=== PATIENT | male | born 1965 | race Caucasian/White ===

== ENCOUNTER 2018-09-24 00:14 | Emergency (ER) | payer OTHER ==
--- NOTE | 2018-09-24 00:21 | EDPHY ---
H & P Time Seen by Provider: 09/24/18 00:18 HPI/ROS: HPI CHIEF COMPLAINT: "cold Feet" HISTORY OF PRESENT ILLNESS: 53-year-old male, presents emergency room by EMS after he states that he sulci and along the pad that says do not go past this sign or go off the path, he states this in treat him so he went off the path came to a small refer, and crossed refer in his leather boots. This caused his feet to get very cold as it is 30 degrees out. Due to his feet being cold he decided call 911 to be evaluated. He is brought to the emergency room by EMS, he is not suicidal homicidal. He is not psychotic. He is not hypothermic. He does complain of cold feet. His boots have been removed. His feet are cool but no evidence of cold injury on exam. No evidence of frostbite of esquivel nip. Plan for this patient be to warm up his feet, provide warm socks. Past Medical History: Denies medical history Past Surgical History: Denies surgical history Social History: Smokes tobacco. Denies alcohol or drugs to me. Homeless. Family History: Noncontributory ROS REVIEW OF SYSTEMS: 10 Systems were reviewed and negative with the exception of the elements mentioned in the history of present illness. Exam Constitutional triage nursing summary reviewed, vital signs reviewed, awake/ alert. Eyes normal conjunctivae and sclera, EOMI, PERRLA. HENT normal inspection, atraumatic, moist mucus membranes, no epistaxis, neck supple/ no meningismus, no raccoon eyes. Respiratory clear to auscultation bilaterally, normal breath sounds, no respiratory distress, no wheezing. Cardiovascular rate normal, regular rhythm, no murmur, no edema, distal pulses normal. Gastrointestinal soft, non-tender, no rebound, no guarding, normal bowel sounds, no distension, no pulsatile mass. Genitourinary no CVA tenderness. Musculoskeletal bilateral lower feet. Good distal pulses, good cap refill, however cool to touch, no evidence of esquivel nip or frostbite. no midline vertebral tenderness, full range of motion, no calf swelling, no tenderness of extremities, no meningismus, good pulses, neurovascularly intact. Skin pink, warm, & dry, no rash, skin atraumatic. Neurologic awake, alert and oriented x 3, AAOx3, moves all 4 extremities equally, motor intact, sensory intact, CN II-XII intact, normal cerebellar, normal vision, normal speech. Psychiatric normal mood/affect. Heme/Lymph/Immune no lymphadenopathy. Differential Diagnosis: Includes but is not limited to in a particular order environmental exposure, hypothermia, limit exposure to cold, esquivel nip, frostbite Medical Decision Making: Plan for this patient provide warm socks, warm blankets, warm his feet. Once these or warmed up appropriately the patient feels better can be safely discharged from the ER. Source: Patient, EMS Departure - Departure Disposition: Home, Routine, Self-Care Clinical Impression: Cold exposure Condition: Good Instructions: Acute Hypothermia (ED) Additional Instructions: 1. Make sure you where warm socks. 2. Do not get your feet wet. Referrals: Patient,NotPresent [Primary Care Provider] - As per Instructions
[2018-09-24 00:42] VITALS: BP 128/89
== END 2018-09-24 01:31 | disposition home or self-care (01) ==
DX: R20.9 Unspecified disturbances of skin sensation (principal); X31.XXXA Exposure to excessive natural cold, initial encounter

== ENCOUNTER 2018-10-14 10:10 | Inpatient (IN) | payer OTHER ==
[2018-10-14] MEDS ORDERED: NS 1,000 ML IV ONE (10:39)
--- NOTE | 2018-10-14 10:52 | EDPHY ---
H & P Smoking Status: Current some day smoker Time Seen by Provider: 10/14/18 10:23 HPI/ROS: CLINICAL IMPRESSION: Right facial cellulitis and parotitis ASSESSMENT/PLAN: This is a 53-year-old homeless gentleman who presents to the emergency department 1 week after after nicking his ear while shaving hair and presents with significant right facial and parotid swelling. Patient reports subjective fever and chills although is afebrile on arrival. He is slightly tachycardic. He has a significant leukocytosis of 21 but otherwise no electrolyte imbalance, metabolic disturbance, or renal insufficiency. CT scan of the face with contrast shows no evidence of drainable abscess. Patient does have a history of MRSA and was given a dose of vancomycin in the ER. Seen and examined by Dr. Streeter. Given multiple comorbidities and diagnostic evaluation, patient will be admitted to the hospital. I discussed with Lynne Escobar power plant operations manager for admissions who accepts this patient. He was stabilized in the ED prior to admission. DIFFERENTIAL DX: Differential diagnosis includes but not limited to facial cellulitis, facial abscess, parotid abscess, MRSA infection, sepsis ED PROCEDURES: See lab and imaging results below ED COURSE: 11:40 a.m.:. Patient seen and examined by Dr. Streeter as well. Will likely admit. Vancomycin ordered. CT pending at this time. 12:23pm: Discussed CT findings with Dr Troncoso. No e/o underlying facial or parotid abscess. Significant facial and parotid swelling and edema. Will admit given symptoms, homelessness, leukocytosis. Hospitalist paged. 12:30 p.m.: Case discussed with Lynne Escobar, nurse practitioner for admissions. [facility] admit to [facility] under the care of Dr. Epps CHIEF COMPLAINT: Right facial swelling HPI: This is a 53-year-old homeless male who presents to the emergency department with 1 week of right facial swelling. Patient believes symptoms started after he was trimming ear hair and cut his right ear. Over the course of 1 week he has had progressively increasing right facial and cheek swelling, increased pain , and subjective fevers and chills. No nausea, vomiting, palpitations. Pain is not worsened by eating but he admits he has not had much to eat. He had a little bit of milk to drink today. He is tolerating secretions well. No reported shortness of breath. He has multiple wounds on the scalp and arms which he states have appeared since he injured his ear. He does have a history of MRSA last summer. His only medication is an inhaler. He does drink alcohol but denies illicit an IV drug abuse. No reported otorrhea, hearing loss, tinnitus, headaches, vertigo or dizziness PMH: Asthma Pertinent Past Surgical History: None reported Family History: Noncontributory Social History: Homeless, denies illicit and IV drug abuse, admits to alcohol use REVIEW OF SYSTEMS: All other systems negative Constitutional: Subjective fever and chills, positive appetite change.] Eyes: No discharge, vision change ENT: No sore throat, congestion, positive ear pain. Cardiovascular: No chest pain, no palpitations. Respiratory: No cough, no shortness of breath. Gastrointestinal: No abdominal pain, no vomiting, diarrhea. Skin: No rashes, color change. Neurological: No headache, dizziness, weakness. PHYSICAL EXAM: General Appearance: Alert, oriented, appropriate, cooperative, homeless, disheveled, slightly tachycardic, afebrile HEENT: TMs are clear bilaterally no perforation or FB, abrasion noted to the right external ear just inferior to the tragus. no injection, no evidence of serous or mucopurulent otitis. Swelling inferior to this spreading medially along the entire parotid region and right cheek. This area is very tender to palpation. No submandibular swelling. Bilateral symmetric subcentimeter anterior lymphadenopathy noted. No intraoral lesions or dental pain. No Nazario 's angina. Oropharynx clear is no erythema or exudates, no tonsillar hypertrophy or asymmetry. Dentition without abnormality. Eyes: PERRLA, no acute vision change, nystagmus, swelling, discharge, pain or photosensitivity. Conjunctiva pink, no pallor or injection Neck: no midline pain, FROM, no meningismus. Respiratory: There are no retractions, lungs are clear to auscultation. Cardiac: Tachycardic, regular rhythm, no murmurs or gallops. Gastrointestinal: Abdomen is soft, nontender, bowel sounds normal, no masses/ hernia, no rigidity, guarding or focal peritoneal findings. Neurological: Alert and oriented x 3, CN 2-12 grossly intact, normal gait no ataxia, DTR's intact, normal sensation and strength Skin: Multiple scabbed sores on the scalp and bilateral arms. No open wounds that are bleeding or draining purulent discharge Musculoskeletal: Extremities are symmetrical, full range of motion, no tenderness, deformity, swelling, or erythema. Psychiatric: Patient is oriented X 3, there is no agitation. MEDICAL DECISION MAKING: Secondary supervising physician who also saw and examined the patient at time of evaluation was Dr Streeter. Diagnosis: Right facial cellulitis and parotitis. New, requires workup Summary: See Assessment and Plan for summary of ED visit Clinical lab tests: ordered / reviewed. Independent visualization of images, tracing, or specimens: yes Discussed patient with another provider: Dr. Streeter, [facility] nurse practitioner Patient Progress: Stabilized . (Franklyn Esparza) Constitutional: Initial Vital Signs Temperature (C) 37.1 C 10/14/18 10:19 Heart Rate 104 H 10/14/18 10:19 Respiratory Rate 18 10/14/18 10:19 Blood Pressure 98/60 L 10/14/18 10:19 O2 Sat (%) 96 10/14/18 10:19 O2 Delivery Mode Room Air Allergies/Adverse Reactions: No Known Allergies Allergy (Verified 10/14/18 11:57) Home Medications: Medication Instructions Recorded Albuterol [Proventil Inhaler HFA 1 - 2 puffs IH Q4H PRN 10/14/18 (*)] MDM/Departure - MDM Medications Given: Vancomycin HCl 1.5 gm/ Sodium (Chloride) 250 mls @ 166.667 mls/hr IV EDNOW ONE Stop: 10/14/18 13:59 Last Admin: 10/14/18 12:33 Dose: 250 mls Discontinued Medications Sodium Chloride (Ns) 1,000 mls @ 0 mls/hr IV EDNOW ONE; Wide Open PRN Reason: Protocol Stop: 10/14/18 10:40 Last Admin: 10/14/18 11:30 Dose: 1,000 mls ED Course/Re-evaluation: PHYSICIAN DOCUMENTATION: The patient was evaluated and managed by the Physician Daytime Babysitter and myself. I have reviewed the chart and agree with the findings and plan of care as documented. In addition, I examined the patient myself at 1140. History confirmed as started is a scratch on the outside of his ear, now with swelling on the right side of his face and moderate to severe pain. Physical findings as follows: Patient has abrasion on the outside of his ear, tenderness warmth and swelling of the right side of his face including his jaw. No trismus. WBC greater than 20, homeless, facial cellulitis. Would recommend admission for IV antibiotics until improvement. No abscess seen on CT. No airway compromise. Does not have vesicles to suggest zoster is likely. I am the secondary supervising physician. (Vincent Streeter) - Depart Disposition: [facility] Inpatient Acute Clinical Impression: Facial cellulitis, Parotitis, acute Condition: Fair
[2018-10-14 11:01] LABS: PLATELET COUNT 399 10^3/uL (150-400)
[2018-10-14] MEDS ORDERED: IOPAMIDOL (ISOVUE-300) 100 ML BTL ONE (11:38)
[2018-10-14] MEDS ORDERED: VANCOMYCIN 1.5 GM in D5W 250 ML IV ONE (11:56)
[2018-10-14] MEDS ORDERED: VANCOMYCIN 1.5 GM in NS 250 ML IV ONE (12:30)
[2018-10-14] MEDS ORDERED: ONDANSETRON DISINTEGRATING 4 MG TAB PO PRN (12:31)
[2018-10-14] MEDS ORDERED: ONDANSETRON 4 MG/2 ML VIAL IVP PRN (12:31)
[2018-10-14] MEDS ORDERED: ALBUTEROL 60 PUFFS/8 GM MDI IH PRN (13:29)
--- NOTE | 2018-10-14 13:46 | PDGENHP ---
History and Physical - Chief Complaint Right facial cellulitis and parotitis - History of Present Illness 53 y/o male with history of MRSA presents with progressive right-sided facial swelling and pain for one week. He reports attempting to use a razor and shave his ear hair and believes this is what prompted the infection. He endorses pain swallowing, difficulty opening his mouth, ear pain, tinnitus, headache. Subjective with fevers and chills. Denies SOB, chest pains, dysuria, N/V, vision changes, otorrhea. CT Maxillofacial w/IV contrast Scan: No drainable abscess or focal fluid collection Per pt, hx of MRSA was to his wounds BLE and was last summer. Past Medical/Surgical History 1. Asthma 2. Suicide attempt 2017 3. Hx of MRSA Social 1. Homeless 2. Rarely drinks alcohol. Last time he drank was at the beginning of September 2018; smokes cigarettes (4-5 cigarettes/day) and cannabis; 6 months ago, used to smoke cocaine and meth but stopped "because that's the bad stuff." Denies IV drug use. History Information - Allergies/Home Medication List Allergies/Adverse Reactions: No Known Allergies Allergy (Verified 10/14/18 11:57) Home Medications: Albuterol [Proventil Inhaler HFA (*)] 1 - 2 puffs IH Q4H PRN 10/14/18 [Last Taken Unknown] I have personally reviewed and updated: family history, medical history, social history, surgical history Past Medical History: See HPI List - Surgical History Additional surgical history: See HPI list - Social History Smoking Status: Current every day smoker Tobacco Use: Cigarettes Alcohol Use: Rarely Drug Use: Marijuana Review of Systems Review of Systems: ROS: 10pt was reviewed & negative except for what was stated in HPI & below Constitutional: Reports: chills, fever, malaise, other (Pain) EENMT: Reports: ear pain, mouth pain, mouth swelling, other (Pain swallowing) Cardiac: Reports: no symptoms Respiratory: Reports: no symptoms Gastrointestinal: Reports: no symptoms Genitourinary: Reports: no symptoms Muscolosketal: Reports: no symptoms Skin: Reports: lumps Neurological: Reports: headache Hematologic/Lymphatic: Reports: swollen glands Immunologic/Allergy: Reports: no symptoms Physical Exam Physical Exam: Lab data and imaging reviewed Temp Pulse Resp BP Pulse Ox 37.1 C 95 16 114/64 94 10/14/18 12:35 10/14/18 12:35 10/14/18 12:35 10/14/18 12:35 10/14/18 12:35 Constitutional: uncomfortable, unkempt Eyes: PERRL, anicteric sclera, EOMI Ears, Nose, Mouth, Throat: moist mucous membranes, other (Unable to visualize right TM. Canal edematous with clear drainage. Lesion inferior to tragus. Exterior edematous following right side of jaw line.) Cardiovascular: regular rate and rhythym, no murmur, rub, or gallop, No edema Peripheral Pulses: 2+: dorsalis-pedis (R) (Radial 2+), dorsalis-pedis (L) ( Radial 2+) Respiratory: no respiratory distress, no rales or rhonchi, clear to auscultation Gastrointestinal: normoactive bowel sounds, soft, non-tender abdomen, no palpable masses Genitourinary: no bladder fullness, no bladder tenderness Skin: warm, erythema, induration Musculoskeletal: full muscle strength, no muscle tenderness, normal joint ROM, no joint effusions Neurologic: AAOx3, sensation intact bilaterally, CN II-XII Intact Psychiatric: interacting appropriately, not anxious, not encephalopathic, thought process linear Lymph, Heme, Immunologic: lymphadenopathy Lab Data & Imaging Review 10/14/18 10:50 10/14/18 10:50 WBC 21.07 10^3/uL (3.80-9.50) H 10/14/18 10:50 RBC 5.13 10^6/uL (4.40-6.38) 10/14/18 10:50 Hgb 16.5 g/dL (13.7-17.5) 10/14/18 10:50 Hct 46.2 % (40.0-51.0) 10/14/18 10:50 MCV 90.1 fL (81.5-99.8) 10/14/18 10:50 MCH 32.2 pg (27.9-34.1) 10/14/18 10:50 MCHC 35.7 g/dL (32.4-36.7) 10/14/18 10:50 RDW 14.0 % (11.5-15.2) 10/14/18 10:50 Plt Count 399 10^3/uL (150-400) 10/14/18 10:50 MPV 8.6 fL (8.7-11.7) L 10/14/18 10:50 Neut % (Auto) 85.7 % (39.3-74.2) H 10/14/18 10:50 Lymph % (Auto) 5.3 % (15.0-45.0) L 10/14/18 10:50 [place] % (Auto) 8.2 % (4.5-13.0) 10/14/18 10:50 Eos % (Auto) 0.0 % (0.6-7.6) L 10/14/18 10:50 Baso % (Auto) 0.3 % (0.3-1.7) 10/14/18 10:50 Nucleat RBC Rel Count 0.0 % (0.0-0.2) 10/14/18 10:50 Absolute Neuts (auto) 18.06 10^3/uL (1.70-6.50) H 10/14/18 10:50 Absolute Lymphs (auto) 1.12 10^3/uL (1.00-3.00) 10/14/18 10:50 Absolute Monos (auto) 1.73 10^3/uL (0.30-0.80) H 10/14/18 10:50 Absolute Eos (auto) 0.00 10^3/uL (0.03-0.40) L 10/14/18 10:50 Absolute Basos (auto) 0.06 10^3/uL (0.02-0.10) 10/14/18 10:50 Absolute Nucleated RBC 0.00 10^3/uL (0-0.01) 10/14/18 10:50 Immature Gran % 0.5 % (0.0-1.1) 10/14/18 10:50 Immature Gran # 0.11 10^3/uL (0.00-0.10) H 10/14/18 10:50 RBC/WBC/PLT Morphology TNP 10/14/18 10:50 Platelet Estimate TNP 10/14/18 10:50 VBG Lactic Acid 1.0 mmol/L (0.7-2.1) 10/14/18 10:50 Sodium 134 mEq/L (135-145) L 10/14/18 10:50 Potassium 4.1 mEq/L (3.3-5.0) 10/14/18 10:50 Chloride 104 mEq/L (97-110) 10/14/18 10:50 Carbon Dioxide 22 mEq/l (22-31) 10/14/18 10:50 Anion Gap 8 mEq/L (6-14) 10/14/18 10:50 BUN 12 mg/dL (7-23) 10/14/18 10:50 Creatinine 0.6 mg/dL (0.7-1.3) L 10/14/18 10:50 Estimated GFR > 60 10/14/18 10:50 Glucose 104 mg/dL (70-100) H 10/14/18 10:50 Calcium 9.4 mg/dL (8.5-10.4) 10/14/18 10:50 Assessment & Plan Plan: 53 y/o male with acute right sided facial cellulitis and parotitis, meeting sepsis criteria with elevated heart rate (95) and leukocytosis (21.07). We will treat the pt with antibiotics, IVF and manage his pain with PO/IVP medications. Blood culture and wound culture pending. Monitor vitals. Repeat CBC tomorrow morning. Diet: Full Liquid, ADAT VTE ppx: SCDS, Lovenox Subq Code: Full Dispo: Admit to obs
[2018-10-14] MEDS: NS 1,000 ML IV SCH ×2 (14:27→23:45)
[2018-10-14] MEDS: ACETAMINOPHEN 325 MG TAB PO PRN ×2 (17:02→21:17)
[2018-10-14] MEDS: AMPICILLIN/SULBACTAM 3 GM in NS 100 ML IV SCH ×2 (17:39→23:48)
--- NOTE | 2018-10-14 18:43 | HOSPPROG ---
Hospitalist Progress Note Assessment/Plan: Patient seen and examined. Discussed with Yvette Biswas WELDING LEAD BURNER and agree with plan A/P: * Acute cellulitis with parotitis -doubt MRSA -change abx to IV Unasyn -lemon drops * Sepsis due to cellulitis - evidenced by leukocytosis and tachycardia -lactate okay -BC sent * h/p MRSA - LE wounds -isolation * Tobacco dependence -patch if needed Objective: Vital Signs Temp Pulse Resp BP Pulse Ox 37.5 C 82 18 115/68 94 10/14/18 16:00 10/14/18 16:20 10/14/18 16:20 10/14/18 16:00 10/14/18 16:20 Microbiology 10/14/18 16:20 Gram Stain - Final Mouth - Anaerobic Tube/Swab 10/13/18 10/14/18 10/15/18 05:59 05:59 05:59 Intake Total 1600 Output Total 500 Balance 1100 d/w tori contreras ER provider regarding ER course CT face- parotid gland infected - Physical Exam Constitutional: no apparent distress, appears nourished, not in pain Ears, Nose, Mouth, Throat: other (enlarged, hard parotic gland with surrounding skin erythema) Cardiovascular: regular rate and rhythym, no murmur, rub, or gallop Respiratory: no respiratory distress, no rales or rhonchi, clear to auscultation Gastrointestinal: normoactive bowel sounds, soft, non-tender abdomen, no palpable masses Genitourinary: no bladder fullness, no bladder tenderness, no renal bruits Neurologic: AAOx3, sensation intact bilaterally Psychiatric: interacting appropriately, not anxious, not encephalopathic, thought process linear ICD10 Worksheet Patient Problems: Problems Problem Status Onset Facial cellulitis Acute Parotitis, acute Acute
[2018-10-14] MEDS: ENOXAPARIN 40 MG/0.4 ML SYR SC SCH (21:16)
[2018-10-15] MEDS: ACETAMINOPHEN 325 MG TAB PO PRN ×2 (02:56→19:42)
[2018-10-15] MEDS: oxyCODONE IR 5 MG TAB PO PRN ×4 (04:58→20:37)
[2018-10-15 05:29] LABS: PLATELET COUNT 381 10^3/uL (150-400)
[2018-10-15] MEDS: AMPICILLIN/SULBACTAM 3 GM in NS 100 ML IV SCH ×4 (05:35→23:57)
[2018-10-15] MEDS: ENOXAPARIN 40 MG/0.4 ML SYR SC SCH (08:52)
[2018-10-15] MEDS: NS 1,000 ML IV SCH (08:52)
--- NOTE | 2018-10-15 15:10 | HOSPPROG ---
Hospitalist Progress Note Assessment/Plan: * Acute right facial cellulitis with parotitis -on IV Unasyn -no improvement yet - will give another 24 hours on Unasyn and reassess * Sepsis due to cellulitis - evidenced by leukocytosis and tachycardia -lactate okay -BC sent * h/p MRSA - LE wounds -isolation * Tobacco dependence -patch if needed Subjective: No better, gland not softer, pain not better Objective: Vital Signs Temp Pulse Resp BP Pulse Ox 36.7 C 75 94 H 116/75 92 10/15/18 11:26 10/15/18 11:26 10/15/18 11:26 10/15/18 11:26 10/15/18 08:00 Microbiology 10/14/18 16:20 Gram Stain - Final Mouth - Anaerobic Tube/Swab Laboratory Results 10/15/18 04:47 10/14/18 10/15/18 10/16/18 05:59 05:59 05:59 Intake Total 3250 Output Total 1450 425 Balance 1800 -425 - Physical Exam Constitutional: no apparent distress, appears nourished, not in pain Ears, Nose, Mouth, Throat: other (right parotid very firm, tender) Cardiovascular: regular rate and rhythym, no murmur, rub, or gallop Respiratory: no respiratory distress, no rales or rhonchi, clear to auscultation Gastrointestinal: normoactive bowel sounds, soft, non-tender abdomen, no palpable masses Skin: warm, erythema, induration, other (right facial cellulitis to ear and down neck with very firm parotid gland to palpation), No mottled Neurologic: AAOx3, sensation intact bilaterally Psychiatric: interacting appropriately, not anxious, not encephalopathic, thought process linear ICD10 Worksheet Patient Problems: Problems Problem Status Onset Facial cellulitis Acute Parotitis, acute Acute
--- NOTE | 2018-10-15 15:14 | PDMN ---
Medical Necessity Medical necessity: Pt changed to IP as of 10/15/2018 per and MCG M-160 ( Sepsis); los > 2 mn for ongoing tx and management of sepsis due to cellulitis evidenced by leukocytosis and tachycardia; requiring IV ABX, IVF, and serial labs.
--- NOTE | 2018-10-15 17:22 | ASMTCMCOM ---
CM Note CM Note Notes: Spoke w/RN, pt admitted for facial cellulitis. Pt is homeless, suffers from PTSD, now on IV abx. DC needs unclear, CM w/f. DC Plan: TBD Date Signed: 10/15/2018 05:21 PM Electronically Signed By:Liberty Morris RN
[2018-10-16] MEDS: oxyCODONE IR 5 MG TAB PO PRN ×6 (01:51→22:26)
[2018-10-16] MEDS: ACETAMINOPHEN 325 MG TAB PO PRN ×2 (04:51→13:41)
[2018-10-16 05:13] LABS: PLATELET COUNT 356 10^3/uL (150-400)
[2018-10-16] MEDS: AMPICILLIN/SULBACTAM 3 GM in NS 100 ML IV SCH ×3 (05:19→17:13)
[2018-10-16] MEDS: ENOXAPARIN 40 MG/0.4 ML SYR SC SCH (07:41)
--- NOTE | 2018-10-16 14:50 | HOSPPROG ---
Hospitalist Progress Note Assessment/Plan: 53y male with c/o r facial pain and swelling. First encounter, chart reviewed. * Acute right facial cellulitis with parotitis -on IV Unasyn -slight improvement behind ear - will give another 24 hours on Unasyn and reassess -consider reimaging if no continued improvement * Sepsis due to cellulitis - evidenced by leukocytosis and tachycardia -lactate okay -BC NGTD * h/p MRSA - LE wounds -isolation * Tobacco dependence -patch if needed *Dispo -unclear -cont iV abx -follow Subjective: Up in the chair. Feels a bit better today. Still with pain. Less swelling. Objective: Vital Signs Temp Pulse Resp BP Pulse Ox 36.4 C 76 18 119/87 H 91 L 10/16/18 08:00 10/16/18 08:00 10/16/18 08:00 10/16/18 08:00 10/16/18 08:00 Laboratory Results 10/16/18 04:58 10/15/18 10/16/18 10/17/18 05:59 05:59 05:59 Output Total 1250 Balance -1250 - Physical Exam Constitutional: appears nourished, uncomfortable, No obese Eyes: PERRL, anicteric sclera, EOMI Ears, Nose, Mouth, Throat: moist mucous membranes, hearing normal, other (right ear wound, right facial lump) Cardiovascular: regular rate and rhythym, No JVD, No edema Respiratory: no respiratory distress, no rales or rhonchi, reduced air movement Gastrointestinal: normoactive bowel sounds, No tenderness, No ascites Skin: warm, abrasion, erythema, No mottled Musculoskeletal: normal joint ROM, no joint effusions, generalized weakness Neurologic: AAOx3 Psychiatric: interacting appropriately, not anxious, not encephalopathic, thought process linear ICD10 Worksheet Patient Problems: Problems Problem Status Onset Facial cellulitis Acute Parotitis, acute Acute
--- NOTE | 2018-10-16 15:08 | WOCRNPDOC ---
WOCRN Advanced Assessment Note - Skin Integrity Problem, Advanced Assess Right Arm Deroofed Blisters Dressing Type: Open to Air Exudate Amount: Minimal Exudate Characteristic(s): Dried, Serosanguinous Integumentary Issue Intervention: Dressing Applied (allevyn life), Silver Gel Applied Roxie Wound Tissue: Erythema, Hot, Swollen, Painful/Tender Roxie Wound Swelling: Moderate Wound Bed Color: [place], Red Wound Bed Constitution: Red/[place] - Non Granular Tissue, De-roofed Serous Blister Site Measurement - Head-to-Toe Length X Width X Depth (cm): 2 wounds approximately 1x1x0.1 closest to elbow. 3 wounds approximately 0.6x0.6x0.1 closest to wrist Skin Integrity Problem Comment: Patient reports blisters that deroofed, with history of appearing in similar manner in the past. Patient states that they are painful. Wound beds have erythema around edges, and are swollen. REBEKAH Farr in room for care. Wound care will not follow this wound. Right Fourth Finger Laceration Dressing Type: Open to Air Exudate Amount: Scant Roxie Wound Tissue: Swollen Roxie Wound Swelling: Severe Wound Bed Color: [place], Red Wound Bed Constitution: Red/[place] - Non Granular Tissue Wound Edges: Epithelizing Site Measurement - Head-to-Toe Length X Width X Depth (cm): 0.4x1.1x0.3 Skin Integrity Problem Comment: Patient states wound is accidental from a knife , and occurred approximately 2 weeks ago. Periwound skin is quite swollen, but there is no erythema or warmth. Wound care will not follow this wound. Right Ear Abrasion Dressing Type: Open to Air Exudate Amount: Minimal Exudate Color: Reddish/Yellow Exudate Characteristic(s): Serosanguinous Roxie Wound Tissue: Erythema, Swollen, Painful/Tender Roxie Wound Swelling: Mild Wound Bed Color: Red Wound Bed Constitution: Red/[place] - Non Granular Tissue Site Measurement - Head-to-Toe Length X Width X Depth (cm): pinpoint partial thickness openings, largest 0.2x0.2x0.1 within area of erythema approximately 1x1 Skin Integrity Problem Comment: Patient reports trimming ear hair when he accidentally cut himself. Due to location of wound, recommend to Lynne O'Bermudez use of bacitracin ointment and leaving uncovered. Wound care will not follow. Please reconsult PRN.
[2018-10-16] MEDS: BACITRACIN ZINC 14.2 GM OINTTUBE TP SCH ×4 (17:13→22:22)
[2018-10-17] MEDS: AMPICILLIN/SULBACTAM 3 GM in NS 100 ML IV SCH ×2 (00:29→06:01)
[2018-10-17] MEDS: ACETAMINOPHEN 325 MG TAB PO PRN ×3 (01:20→10:48)
[2018-10-17] MEDS: oxyCODONE IR 5 MG TAB PO PRN ×4 (03:32→12:58)
--- NOTE | 2018-10-17 09:37 | HOSPPROG ---
Hospitalist Progress Note Assessment/Plan: 53y male with c/o r facial pain and swelling. Hx of a splenectomy. First encounter, chart reviewed. Will ask ID and ENT to evaluate * Acute right facial cellulitis with associated parotitis -on IV Unasyn, abx changed to Daptomycin to have coverage of MRSA -will ask ID to get involved -concerned he is having more pain, appreciate Dr Salas and Dr Sher -will get another neck CT w contrast for further evaluation * Sepsis due to cellulitis -evidenced by leukocytosis and tachycardia -lactate okay -BC NGTD *emesis -had a bout yesterday and again today -will give a liter of fluids. * h/p MRSA - LE wounds -isolation * Tobacco dependence -patch if needed *plan: Dr Sher and Dr Salas to see. appreciate their involvement. Subjective: Ernesto said his pain is worsening kady around his right ear area. Objective: Vital Signs Temp Pulse Resp BP Pulse Ox 37.1 C 88 16 120/82 H 91 L 10/17/18 08:00 10/17/18 08:00 10/17/18 08:00 10/17/18 08:00 10/17/18 08:00 Laboratory Results 10/16/18 04:58 10/16/18 10/17/18 10/18/18 05:59 05:59 05:59 Output Total 1250 Balance -1250 - Physical Exam Constitutional: uncomfortable, No not in pain Eyes: PERRL Ears, Nose, Mouth, Throat: hearing normal Cardiovascular: regular rate and rhythym Respiratory: no respiratory distress Skin: warm, other (swelling along the right jaw up towards his right ear, has a cut on the top part of his ear without any purulent drainage) Musculoskeletal: full muscle strength Neurologic: AAOx3 Psychiatric: interacting appropriately, not encephalopathic ICD10 Worksheet Patient Problems: Problems Problem Status Onset Facial cellulitis Acute Parotitis, acute Acute
[2018-10-17] MEDS: ENOXAPARIN 40 MG/0.4 ML SYR SC SCH (09:41)
[2018-10-17] MEDS: BACITRACIN ZINC 14.2 GM OINTTUBE TP SCH ×3 (09:42→21:24)
--- NOTE | 2018-10-17 10:23 | PDCONSULT ---
Cad Cam Programmer Note: ENT CONSULT brief note. See dictation for complete report. Right parotitis, facial cellulitis. Appears to be worsening. Possible abscess. RECOMMEND: - Agree with adding Vanco (per ID) - New CT neck with contrast to include parotid
[2018-10-17] MEDS ORDERED: VANCOMYCIN 1.25 GM in NS 250 ML IV SCH (10:30)
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
[2018-10-17] MEDS: DAPTOMYCIN IV SCH (11:56)
[2018-10-17] MEDS: NS IV SCH (11:56)
[2018-10-17 11:58] LABS: CREATINE KINASE 118 IU/L (0-224)
[2018-10-17 14:51] LABS: HEPATITIS B CORE AB TOTAL NEGATIVE (NEGATIVE); HEPATITIS B SURFACE ANTIGEN NEGATIVE (NEGATIVE); HEPATITIS C ANTIBODY TOTAL NEGATIVE (NEGATIVE); HIV TYPE 1 AND 2 NEGATIVE (NEGATIVE)
[2018-10-17] MEDS ORDERED: NS 1,000 ML IV SCH (16:00)
[2018-10-17] MEDS ORDERED: IOPAMIDOL (ISOVUE-300) 100 ML BTL ONE (16:22)
--- NOTE | 2018-10-17 18:29 | GHP ---
DATE OF ADMISSION: 10/15/2018 REFERRING PHYSICIAN: Meg Wagoner NP REASON FOR CONSULTATION: To assist in the management of facial cellulitis/parotitis. HISTORY OF PRESENT ILLNESS: The patient was brought to the [facility] Emergency Depa rtment on 10/14/2018, and admitted to the floor with an elevated white blood cell count and a CT conc erning for right facial cellulitis over the right parotid gland. The patient was placed on Unasyn an d seems to have not had significant improvement. He states that approximately a week ago, he was sha ving with a regular razor and nicked himself on the ear, as he was trying to shave hair around his tr chacorta. He continues to have right-sided facial swelling but denies nausea, vomiting. PAST MEDICAL HISTORY: Pertinent for COPD, tobacco, history of alcoholism, marijuana use, bipolar dis order, PTSD, splenectomy, MRSA skin infections. MEDICATIONS: Reviewed. ALLERGIES: No known drug allergies. SOCIAL HISTORY: Noncontributory. FAMILY HISTORY: Noncontributory. PHYSICAL EXAM: VITAL SIGNS: Blood pressure 120/82, heart rate 88, respiratory rate 16, O2 saturatio n 91% on room air, temperature is 37.1 degrees Celsius. GENERAL: Alert, interactive, no acute distr ess. HEAD AND FACE: Normocephalic, atraumatic with right facial swelling. There is a firm 8 cm x 4 cm region of induration over the right parotid gland. This is firm and nonfluctuant. Mild erythema . Ears: Right tragus with an abrasion. Ear canals are clear bilaterally. Eyes: EOMI. Nose: Ant erior rhinoscopy unremarkable. Oral cavity clear. No purulent material from Stensen's duct. NECK: Supple. Trachea midline. Jugular digastric mild lymphadenopathy. SKIN: Warm with no other obviou s head and neck lesions but for that noted over the right parotid gland. NEUROLOGIC: Cranial nerves 2-12 are grossly intact. LAB DATA: Blood cultures pending. Mouth swab unremarkable. White blood cell count 17.7. IMAGING: CT scan from ER visit reviewed. Agree with radiology assessment of the images that there i s only some cellulitis that appears to affect the lateral surface of the right parotid gland. No obv ious collection or abscess. ASSESSMENT: A 53-year-old male with right-sided cellulitis that has increased and is somewhat concer naila for abscess. PLAN: Defer to Infectious Disease for antibiotic change from Unasyn. He would be a good candidate f or repeat CT given that his history is consistent with enlarging tissue on that side. We will follow up CT. Please call if there are any questions or concerns. My cell phone number is [phone]. /[id number]/MODL
[2018-10-17] MEDS: IBUPROFEN 200 MG TAB PO PRN (21:23)
[2018-10-18 05:37] LABS: PLATELET COUNT 431 10^3/uL (150-400)
[2018-10-18] MEDS: ACETAMINOPHEN 325 MG TAB PO PRN ×3 (08:36→19:11)
[2018-10-18] MEDS: ENOXAPARIN 40 MG/0.4 ML SYR SC SCH (09:18)
[2018-10-18] MEDS: BACITRACIN ZINC 14.2 GM OINTTUBE TP SCH ×3 (09:49→20:39)
--- NOTE | 2018-10-18 10:16 | SOAPPROG ---
SOAP Progress Note Assessment/Plan: Assessment: Cellulitis with spreading to parotitis and intraparotid fluid collection, possible early abscess/consolidation. Induration and R cheek mass slightly improved since yesterday. WBC normalized. Plan: Hold on surgical intervention for now. Reassess in 24 hours. Call if worsens. Continue ABX per infectious disease. 10/18/18 10:13 10/18/18 10:17 Subjective: Patient feels like sx improving. Objective: Vital Signs Temp Pulse Resp BP Pulse Ox 36.8 C 58 L 16 131/92 H 95 10/18/18 07:59 10/18/18 07:59 10/18/18 07:59 10/18/18 07:59 10/18/18 07:59 Microbiology 10/17/18 10:30 Gram Stain - Final Ear - Swab Laboratory Results 10/18/18 05:00 10/18/18 05:00 10/17/18 10/18/18 10/19/18 05:59 05:59 05:59 Intake Total 1000 Balance 1000 Physical Exam - Physical Exam General Appearance: alert, no apparent distress EENT: PERRL/EOMI, pharynx normal, TMs normal, other (Right cheek induration over and at the parotid gland. Mild erythema.), No EOM palsy, No purulent nasal drainage, No tonsillar exudate Neck: full range of motion, supple, lymphadenopathy (R) Skin: normal color, warm/dry Neuro/Psych: no motor/sensory deficits, alert, normal mood/affect, oriented x 3 ICD10 Worksheet Patient Problems: Problems Problem Status Onset Facial cellulitis Acute Parotitis, acute Acute
[2018-10-18] MEDS: NS IV SCH (13:02)
[2018-10-18] MEDS: DAPTOMYCIN IV SCH (13:02)
--- NOTE | 2018-10-18 13:03 | ASMTCMCOM ---
CM Note CM Note Notes: Pt here for facial cellulitis after trying to clip ear hair. Pt states has 2 places he stays, gave address in [place] on his ID. [address], [place] [address]. Also stays in [place], he does not thing he will need anything at dc, pt ambulates independently but is on IV abx right now, hopefully can transition to orals. DC Plan: Independent Date Signed: 10/18/2018 01:02 PM Electronically Signed By:Liberty Morris RN
--- NOTE | 2018-10-18 15:15 | HOSPPROG ---
Hospitalist Progress Note Assessment/Plan: 53y male with c/o r facial pain and swelling. Hx of a splenectomy. * Acute right facial cellulitis with associated parotitis -abx changed to Daptomycin -reviewed 2nd CT scan which shows fluid collection concerning for abscess formation -he is feeling better today and has less pain-no intervention at this time -Sialogogues added along w warm compresses -ear swab show staph aureus *episodes of diarrhea -if continues will check for c difficile * Sepsis due to cellulitis -resolved -wbc much improved, no longer tachycardic *emesis -none further * h/p MRSA - LE wounds -isolation * Tobacco dependence -patch if needed *plan: continue current care. Reviewed his care w Dr Shepard. Appreciate Dr Salas. Subjective: Ernesto said he is feeling better today. Objective: Vital Signs Temp Pulse Resp BP Pulse Ox 36.8 C 58 L 16 131/92 H 95 10/18/18 07:59 10/18/18 07:59 10/18/18 07:59 10/18/18 07:59 10/18/18 07:59 Microbiology 10/17/18 10:30 Gram Stain - Final Ear - Swab Laboratory Results 10/18/18 05:00 10/18/18 05:00 10/17/18 10/18/18 10/19/18 05:59 05:59 05:59 Intake Total 1000 Balance 1000 - Physical Exam Constitutional: no apparent distress, appears nourished, uncomfortable Eyes: PERRL Ears, Nose, Mouth, Throat: hearing normal Cardiovascular: regular rate and rhythym Respiratory: no respiratory distress Skin: other (right jaw and facial area w less swelling today.) Musculoskeletal: full muscle strength Neurologic: AAOx3 Psychiatric: interacting appropriately ICD10 Worksheet Patient Problems: Problems Problem Status Onset Facial cellulitis Acute Parotitis, acute Acute
--- NOTE | 2018-10-18 16:54 | PCMIDPN ---
Assessment/Plan: Assessment: Right ear cellulitis with wound infection and sympathetic right parotitis. He has seen Silvano improvement since change to IV daptomycin yesterday. Wound culture is growing Staph aureus. It is getting subbed out today in the micro lab and will be hopefully identified tomorrow as MRSA versus MSSA. Plan: 1. Continue IV daptomycin. 2. Possibly plan on discharge on oral doxycycline empirically in the next 1-2 days. 10/18/18 16:52 10/18/18 16:53 Subjective: Patient is resting in his hospital room. He is very pleased with the progress that he is seen over the last 24 hr. Significantly decreased erythema in his right ear. Right parotid is still enlarged. Objective: Daptomycin # 2 Vital Signs Temp Pulse Resp BP Pulse Ox 36.8 C 75 16 119/76 93 10/18/18 15:49 10/18/18 15:49 10/18/18 15:49 10/18/18 15:49 10/18/18 15:49 Microbiology 10/17/18 10:30 Gram Stain - Final Ear - Swab Laboratory Results 10/18/18 05:00 10/18/18 05:00 10/17/18 10/18/18 10/19/18 05:59 05:59 05:59 Intake Total 1000 Balance 1000 - Physical Exam General Appearance: WD/WN, alert, no apparent distress, non-toxic EENT: pharynx normal, other (Right ear normal appearing with very mild erythema. ), No normal ENT inspection (Right parotid gland enlargement) Respiratory: lungs clear, normal breath sounds, No respiratory distress Cardiac/Chest: regular rate, rhythm, No tachycardia ICD10 Worksheet Patient Problems: Problems Problem Status Onset Facial cellulitis Acute Parotitis, acute Acute
[2018-10-19] MEDS: ACETAMINOPHEN 325 MG TAB PO PRN ×3 (07:48→21:10)
[2018-10-19] MEDS: ENOXAPARIN 40 MG/0.4 ML SYR SC SCH (07:48)
[2018-10-19] MEDS: BACITRACIN ZINC 14.2 GM OINTTUBE TP SCH ×3 (07:49→21:03)
[2018-10-19] MEDS: NS IV SCH (10:58)
[2018-10-19] MEDS: DAPTOMYCIN IV SCH (10:58)
--- NOTE | 2018-10-19 14:47 | HOSPPROG ---
Hospitalist Progress Note Assessment/Plan: 53y male with c/o r facial pain and swelling. Hx of a splenectomy. * Acute right facial cellulitis with associated parotitis -abx changed to Daptomycin -reviewed 2nd CT scan which shows fluid collection concerning for abscess formation -he is much improved -Sialogogues added along w warm compresses -ear swab show staph aureus *episodes of diarrhea -no further c/o of this * Sepsis due to cellulitis -resolved -wbc much improved, no longer tachycardic *emesis -none further * h/p MRSA - LE wounds -isolation * Tobacco dependence -patch if needed *plan: continue current care. possibly home in the next day or so. Subjective: Zackery is feeling much better today, swelling is decreasing, pain is decreasing. Objective: Vital Signs Temp Pulse Resp BP Pulse Ox 36.7 C 77 16 112/71 94 10/19/18 07:17 10/19/18 07:17 10/19/18 07:17 10/19/18 07:17 10/19/18 07:17 Microbiology 10/17/18 10:30 Gram Stain - Final Ear - Swab Laboratory Results 10/18/18 05:00 10/18/18 05:00 10/18/18 10/19/18 10/20/18 05:59 05:59 05:59 Intake Total 1000 120 Balance 1000 120 - Physical Exam Constitutional: no apparent distress, appears nourished Eyes: PERRL Ears, Nose, Mouth, Throat: hearing normal Cardiovascular: regular rate and rhythym Respiratory: no respiratory distress Skin: warm, other (right facial area much improved, less warmth, less swelling.) Musculoskeletal: full muscle strength Neurologic: AAOx3 Psychiatric: interacting appropriately ICD10 Worksheet Patient Problems: Problems Problem Status Onset Facial cellulitis Acute Parotitis, acute Acute
--- NOTE | 2018-10-19 15:37 | PCMIDPN ---
Assessment/Plan: Assessment: Right ear cellulitis with wound infection and sympathetic right parotitis. He has seen great improvement since change to IV daptomycin yesterday. Wound culture is growing Staph aureus. We are still awaiting at sensitivities. Plan: 1. Continue IV daptomycin. 2. Possibly plan on discharge on oral doxycycline empirically in the next 1-2 days. Subjective: Patient is doing very well. He still notes that his right parotid gland is quite swollen. Otherwise feels good. Objective: Daptomycin # 3 Vital Signs Temp Pulse Resp BP Pulse Ox 36.7 C 77 16 112/71 94 10/19/18 07:17 10/19/18 07:17 10/19/18 07:17 10/19/18 07:17 10/19/18 07:17 Microbiology 10/17/18 10:30 Gram Stain - Final Ear - Swab Laboratory Results 10/18/18 05:00 10/18/18 05:00 10/18/18 10/19/18 10/20/18 05:59 05:59 05:59 Intake Total 1000 120 Balance 1000 120 - Physical Exam General Appearance: WD/WN, alert, no apparent distress, non-toxic EENT: normal ENT inspection (Apart from swollen right parotid. Minimal tenderness.) Skin: normal color, warm/dry, No rash Neuro/Psych: alert, normal mood/affect, oriented x 3 ICD10 Worksheet Patient Problems: Problems Problem Status Onset Facial cellulitis Acute Parotitis, acute Acute
--- NOTE | 2018-10-19 16:52 | ASMTCMCOM ---
CM Note CM Note Notes: CM discussed case with RN, patient has transitioned to oral antibiotics. Patient will probably discharge tomorrow, independent. CM to follow. Current D/C Plan: Independent. Date Signed: 10/19/2018 04:52 PM Electronically Signed By:Naty Carpio
[2018-10-20] MEDS: ACETAMINOPHEN 325 MG TAB PO PRN (07:21)
--- NOTE | 2018-10-20 09:03 | PCMIDPN ---
Assessment/Plan: 1.Facial cellulitis with extension to the parotid gland: Patient is markedly better compared with Saturday. Do not feel that he needs surgical intervention presently. Will get another dose of daptomycin today, then tomorrow, and can be discharged on oral doxycycline. Prefer to leave him on daptomycin as is pending formal susceptibilities of Staph aureus. 2.Vaccines: Patient is agreeable to a flu vaccine today. Will also give him a hepatitis a booster. Called the lab, hepatitis a results of 0.9 is the equivalent of an indeterminate result. Weight hepatitis-B result, and give booster tomorrow if not immune. 10/20/18 09:03 Subjective: Markedly better compared with Saturday. CT scan showed development of small fluid pockets concerning for abscesses. That being said, he is much better today, with improved swelling and pain. Objective: Daptomycin 490 daily antibiotics day 6 No fevers Vital Signs Temp Pulse Resp BP Pulse Ox 36.7 C 62 16 120/87 H 94 10/20/18 07:27 10/20/18 07:27 10/20/18 07:27 10/20/18 07:27 10/20/18 07:27 Microbiology 10/17/18 10:30 Gram Stain - Final Ear - Swab Laboratory Results 10/18/18 05:00 10/18/18 05:00 10/19/18 10/20/18 10/21/18 05:59 05:59 05:59 Intake Total 1120 Output Total 300 Balance 1120 -300 Ear culture with Staph aureus, methicillin-susceptible - Physical Exam General Appearance: alert, no apparent distress EENT: other (Small superficial wound on tragus right ear much better. Less swelling. Parotid gland also significantly improved with less swelling and tenderness. It is more indurated compared with Saturday. Erythema has resolved. No fluctuance.) ICD10 Worksheet Patient Problems: Problems Problem Status Onset Facial cellulitis Acute Parotitis, acute Acute
[2018-10-20] MEDS ORDERED: HEPATITIS A VIRUS VACCINE 1,440 UNIT/ML SYRINGE IM ONE (09:30)
[2018-10-20] MEDS: IBUPROFEN 200 MG TAB PO PRN (10:32)
[2018-10-20] MEDS: ENOXAPARIN 40 MG/0.4 ML SYR SC SCH (10:32)
[2018-10-20] MEDS: NS IV SCH (10:32)
[2018-10-20] MEDS: DAPTOMYCIN IV SCH (10:32)
[2018-10-20] MEDS: BACITRACIN ZINC 14.2 GM OINTTUBE TP SCH ×3 (10:54→20:19)
[2018-10-20] MEDS ORDERED: HEPATITIS B VIRUS VACCINE-PF 20 MCG/ML INJ IM ONE (12:30)
[2018-10-20 16:09] LABS: HEPATITIS A ANTIBODY TOTAL BORDERLINE (NEGATIVE)
[2018-10-20] MEDS: DIPHENHYDRAMINE CREAM TP PRN ×2 (16:35→20:20)
--- NOTE | 2018-10-20 16:37 | HOSPPROG ---
Hospitalist Progress Note Assessment/Plan: 53y male with c/o r facial pain and swelling. Hx of a splenectomy. * Acute right facial cellulitis with associated parotitis -abx changed to Daptomycin -Sialogogues added along w warm compresses -ear swab show staph aureus *episodes of diarrhea -no further c/o of this *SIRS w an infection -resolved -wbc much improved, no longer tachycardic *emesis -none further * h/p MRSA - LE wounds -isolation * Tobacco dependence -patch if needed *plan: one more dose of IV antibiotics tomorrow and will dc on doxycycline. So appreciative of the ID team Subjective: Ernesto is feeling so much better, has very little pain to the right side of his face. Objective: Vital Signs Temp Pulse Resp BP Pulse Ox 36.6 C 72 16 113/85 H 94 10/20/18 15:23 10/20/18 15:23 10/20/18 15:23 10/20/18 15:23 10/20/18 15:23 Microbiology 10/17/18 10:30 Gram Stain - Final Ear - Swab Wound Culture - Final Staphylococcus Aureus Laboratory Results 10/18/18 05:00 10/18/18 05:00 10/19/18 10/20/18 10/21/18 05:59 05:59 05:59 Intake Total 1120 Output Total 300 Balance 1120 -300 - Physical Exam Constitutional: no apparent distress, appears nourished, not in pain Eyes: PERRL Ears, Nose, Mouth, Throat: hearing normal Respiratory: no respiratory distress Skin: warm, other (swelling has almost completely resolved on right side of his face) Musculoskeletal: full muscle strength Neurologic: AAOx3 Psychiatric: interacting appropriately ICD10 Worksheet Patient Problems: Problems Problem Status Onset Facial cellulitis Acute Parotitis, acute Acute
--- NOTE | 2018-10-21 06:59 | SOAPPROG ---
SOAP Progress Note Assessment/Plan: Assessment: Cellulitis with intraparotid spread. Induration and R cheek mass slightly improved since Saturday. Improved induration and tenderness. Plan: Hold on surgical intervention for now. Continue ABX per infectious disease. Call if symptoms worsen. Have patient follow up s/p abx if mass does not resolve. 10/21/18 06:56 Subjective: Feels mass is improved. States hes having less pain and tenderness. Objective: Vital Signs Temp Pulse Resp BP Pulse Ox 36.8 C 67 16 132/91 H 94 10/20/18 22:17 10/20/18 22:17 10/20/18 22:17 10/20/18 22:17 10/20/18 22:17 Microbiology 10/17/18 10:30 Gram Stain - Final Ear - Swab Wound Culture - Final Staphylococcus Aureus Laboratory Results 10/18/18 05:00 10/18/18 05:00 10/20/18 10/21/18 10/22/18 05:59 05:59 05:59 Intake Total 1120 1000 Output Total 300 Balance 1120 700 Physical Exam - Physical Exam General Appearance: alert, no apparent distress EENT: PERRL/EOMI, pharynx normal, other (Right cheek induration and mass. Minimal erythema. Mild tenderness.) Neck: full range of motion, normal inspection Skin: normal color, warm/dry ICD10 Worksheet Patient Problems: Problems Problem Status Onset Facial cellulitis Acute Parotitis, acute Acute
--- NOTE | 2018-10-21 08:36 | HOSPPROG ---
Hospitalist Progress Note Assessment/Plan: 53y male with c/o r facial pain and swelling. Hx of a splenectomy. * Acute right facial cellulitis with associated parotitis -abx changed to Daptomycin -Sialogogues added along w warm compresses -ear swab show staph aureus *episodes of diarrhea -no further c/o of this *SIRS w an infection -resolved -wbc much improved, no longer tachycardic *emesis -none further * h/p MRSA - LE wounds -isolation * Tobacco dependence -patch if needed *plan: dc on doxy and follow up w Dr Salas if swelling doesn't resolve Subjective: Zackery is anxious for discharge, has some ongoing swelling. Assures me he will f/u with Dr Salas. Objective: Vital Signs Temp Pulse Resp BP Pulse Ox 36.8 C 67 16 132/91 H 94 10/20/18 22:17 10/20/18 22:17 10/20/18 22:17 10/20/18 22:17 10/20/18 22:17 Microbiology 10/17/18 10:30 Gram Stain - Final Ear - Swab Wound Culture - Final Staphylococcus Aureus Laboratory Results 10/18/18 05:00 10/18/18 05:00 10/20/18 10/21/18 10/22/18 05:59 05:59 05:59 Intake Total 1120 1000 Output Total 300 Balance 1120 700 - Physical Exam Constitutional: no apparent distress, appears nourished, not in pain Eyes: PERRL Ears, Nose, Mouth, Throat: hearing normal Respiratory: no respiratory distress Skin: warm, other (right side of face slightly more swollen, has been lying on a kpad. Still has a small formed area above the jaw line towards the ear.) Musculoskeletal: full muscle strength Neurologic: AAOx3 Psychiatric: interacting appropriately ICD10 Worksheet Patient Problems: Problems Problem Status Onset Facial cellulitis Acute Parotitis, acute Acute
[2018-10-21 08:43] VITALS: BP 115/81
[2018-10-21] MEDS: ENOXAPARIN 40 MG/0.4 ML SYR SC SCH (08:58)
[2018-10-21] MEDS: BACITRACIN ZINC 14.2 GM OINTTUBE TP SCH ×2 (09:01)
[2018-10-21] MEDS: IBUPROFEN 200 MG TAB PO PRN (09:09)
--- NOTE | 2018-10-21 10:18 | ASMTLACE ---
LACE Length of stay for Answers: 7-13 days current admission Acuity / Level of Answers: Yes Care: Did the patient have an inpatient admission? Comorbidities - select Answers: Chronic pulmonary disease all that apply Opioid dependence / Chronic pain # of Emergency department Answers: 1-2 visits in the last 6 months Social determinants Answers: Homelessness (street, penitentiary) Score: 18 Date Signed: 10/21/2018 10:17 AM Electronically Signed By:KERRIE Duran
--- NOTE | 2018-10-21 10:44 | GDS ---
DISCHARGE DIAGNOSES: 1. Acute right facial cellulitis with associated parotiditis. 2. Episode of diarrhea. 3. Systemic inflammatory response syndrome with an infection. 4. Emesis. 5. History of methicillin-resistant Staphylococcus aureus. 6. Tobacco dependence. CONSULTATIONS: 1. Albina Sher MD. 2. Silvano Salas MD. HISTORY OF PRESENT ILLNESS: Briefly, the patient is a 53-year-old male who tried to shave the hair growing from his auditory canal with a manual razor and nicked himself around the tragus area. He noticed some swelling in his ear on the right side of his face. This swelling became increasingly worse; so, he presented to [facility] for further care. He had a CT scan, which showed a right facial cellulitis with extension to the right parotid gland consistent with a secondary sialoadenitis. There was no obvious stone or drainable abscess. He was seen by the Infectious Disease team, and treated with daptomycin. He started to improve throughout his stay. In addition, he was seen by Dr. Silvano Salas for further evaluation in case he may need further drainage. He will follow up with Dr. Salas in the outpatient if he has ongoing swelling. He will be discharged home today on doxycycline. HOSPITAL COURSE PER PROBLEM: 1. Right facial cellulitis with associated parotiditis, much improved, but still has some ongoing localized swelling. 2. Diarrhea. None further. 3. SIRS with an infection due to the above, resolved. 4. Emesis. None further. 5. History of MRSA. He was placed in isolation and Wound Care saw him. 6. Tobacco dependence. No signs or symptoms of any type of withdrawal. DISCHARGE CONDITION: Stable. Blood pressure is 115/81, heart rate of 95, respiratory rate of 16, O2 saturation on room air 94%, temperature is 36.4 Celsius. DISCHARGE MEDICATIONS: Please see the EMR. DISCHARGE INSTRUCTIONS: 1. To follow up with Dr. Silvano Salas if the swelling does not resolve. 2. He also received a hepatitis vaccine on 10/20/2018. He will need to go to his primary care doctor in 6 months for a booster. He also received a hepatitis B vaccine, and he will need 2 further booster shots for followup. 3. To take the doxycycline as prescribed and stay out of the sun. If in the sun, wear sun block. 4. To continue warm compresses 5 times a day to his face. 5. If he develops fever, chills, worsening redness to return to the ER. /[id number]/MODL JANA
--- NOTE | 2018-10-21 11:00 | ASMTDCNOTE ---
Case Management Discharge Discharge Order Complete? Answers: Yes Patient to Obtain Answers: Independently Medications Transportation Arranged Answers: Bus [employer]ens EMTALA Complete Answers: No Case Management Transport Answers: No Form Complete Faxed Final Orders Answers: No Agency/Facility Transfer Answers: No Report Printed & Faxed to Receiving Agency Family Notified Answers: No Discharge Comments Notes: Pts case discussed w/ Meg Wagoner NP. CM met w/ pt for dispo planning. Pt would like a skilled nursing bed reserved. CM emailed [facility] and left a msg w/ the [facility]. Pt reports that he has Medicaid. Referral made to [facility]. Daisy from [facility] are here today to meet w/ pt. No other needs at this time. CM available for changes. Plan: Independent Date Signed: 10/21/2018 10:59 AM Electronically Signed By:KRERIE Duran
[2018-10-21] MEDS: DAPTOMYCIN IV SCH (11:07)
[2018-10-21] MEDS: NS IV SCH (11:07)
== END 2018-10-21 12:49 | disposition home or self-care (01) | DRG 155 ==
LOC: F3E 14:13 → OBSVTOIN 10-15 14:17
PROVIDERS: ADMIT Internal Medicine; ATTEND Internal Medicine
DX: K11.21 Acute sialoadenitis (principal); L03.211 Cellulitis of face; B95.61 Methicillin susceptible Staphylococcus aureus infection as the cause of diseases classified elsewhere; Z86.14 Personal history of Methicillin resistant Staphylococcus aureus infection; Z90.81 Acquired absence of spleen; R19.7 Diarrhea, unspecified; R11.11 Vomiting without nausea; J44.9 Chronic obstructive pulmonary disease, unspecified; F17.210 Nicotine dependence, cigarettes, uncomplicated; J45.909 Unspecified asthma, uncomplicated; F31.9 Bipolar disorder, unspecified; F43.12 Post-traumatic stress disorder, chronic; Z91.5 Personal history of self-harm; F10.21 Alcohol dependence, in remission; Z23 Encounter for immunization
CPT/HCPCS: 86704-90; 86708-90; 96365; G0008; G0010; G0378; G0472; J0295; J0878; J1650; J3370; Q9967